=== PATIENT | male | born 1975 | race Hispanic/Latino ===

== ENCOUNTER 2018-06-09 16:17 | Emergency (ER) | payer OTHER ==
--- NOTE | 2018-06-09 16:33 | Emergency Department Report ---
Blank Doc - Documentation Documentation: 42 Y/O MALE PRESENTS TO ED C/O OF A 2 DAY HISTORY OF NON-IMPROVING CHEST PAIN AND SOB. NO FEVER OR COUGH. NO SWELLING TO LOWER EXT. SEEN AT [facility] AND CARDIAC EVALUATION NEGATIVE.
[2018-06-09 17:06] LABS: Basophils % (Auto) 0.3 % (0.0-1.8); Eosinophils % (Auto) 0.2 % (0.0-4.3); Hematocrit 42.3 % (35.5-45.6); Hemoglobin 14.5 gm/dl (11.8-15.2); Lymphocytes # (Auto) 1.3 K/mm3 (1.2-5.4); Lymphocytes % (Auto) 12.4 % (13.4-35.0); Mean Corpuscular HGB Conc 34 % (32-34); Mean Corpuscular Volume 91 fl (84-94); Monocytes # (Auto) 0.5 K/mm3 (0.0-0.8); Monocytes % (Auto) 4.7 % (0.0-7.3); Platelet Count 257 K/mm3 (140-440); Red Blood Count 4.62 M/mm3 (3.65-5.03); Red Cell Distribution Width 13.5 % (13.2-15.2)
[2018-06-09 17:26] LABS: Alanine Aminotransferase 21 units/L (7-56); Albumin 4.4 g/dL (3.9-5); BUN/Creatinine Ratio 20; Blood Urea Nitrogen 14 mg/dL (9-20); Calcium 9.4 mg/dL (8.4-10.2); Hemolysis Index 8
--- NOTE | 2018-06-09 18:20 | XRay Report ---
PROCEDURE: XR CHEST ROUTINE 2V TECHNIQUE: 2 view chest HISTORY: Chest Pain COMPARISONS: None FINDINGS: Trachea midline. Heart size normal. No pneumothorax. No effusion. No acute airspace disease No acute bony abnormality IMPRESSION: No active pulmonary disease. This document is electronically signed by Santy Pandey MD., Jun 09 2018 06:17:56 PM ET
== END 2018-06-09 17:09 | disposition left against medical advice (07) ==
LOC: ED 16:17
DX: R07.89 Other chest pain (principal); Z53.21 Procedure and treatment not carried out due to patient leaving prior to being seen by health care provider
CPT/HCPCS: 36415; 71046; 80053; 83690; 83880; 84484; 85025; 85379; 93005; 93010